=== PATIENT | female | born 1995 | race African-American/Black ===

== ENCOUNTER 2025-04-13 16:13 | Emergency (ER) | payer MEDICAID, OTHER ==
[~2025-04-13] VITALS: Ht 152.4 cm; Wt 41.3 kg
--- NOTE | 2025-04-13 17:09 | ED.PDOC ---
GI ASSESSMENT HPI Comments 30y F who presents to the ED for chief complaint of abdominal pain. PT states she has been having RLQ abdominal pain for the past 2 weeks. Pt states she is also , and states she went to PCP at [facility], [place] and states she was referred to the ED for further evaluation. Pt in the ED, presents with referral to rule out ectopic and states pt had labs done which showed pt was positive for UTI. Pt otherwise has been having nausea but otherwise denies any other symptoms. Pt has noted stable vitals in the ED. 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 Family History Family History: Reviewed,noncontributory to illness Social History Smoker: Non-Smoker Alcohol: Denies ETOH Use Drugs: Denies Drug Use Lives In: Home Constitutional: denies: chills, diaphoresis, fatigue, fever, malaise, sweats, weakness, others EENTM: denies: blurred vision, double vision, ear bleeding, ear discharge, ear drainage, ear pain, ear ringing, eye pain, eye redness, hearing loss, mouth pain, mouth swelling, nasal discharge, nose bleeding, nose congestion, nose pain, photophobia, tearing, throat pain, throat swelling, voice changes, others Respiratory: denies: cough, hemoptysis, orthopnea, SOB at rest, shortness of breath, SOB with excertion, stridor, wheezing, others Cardiovascular: denies: chest pain, dizzy spells, diaphoresis, Dyspnea on exertion, edema, irregular heart beat, left arm pain, lightheadedness, palpitations, PND, syncope, others Gastrointestinal: reports: abdominal pain, nausea; denies: abdomen distended, blood streaked bowels, constipated, diarrhea, dysphagia, difficulty swallowing, hematemesis, melena, poor appetite, poor fluid intake, rectal bleeding, rectal pain, vomiting, others Genitourinary: denies: abnormal vagina bleeding, burning, dyspareunia, dysuria, flank pain, frequency, hematuria, incontinence, pain, , vagina discharge, urgency, others Neurological: denies: dizziness, fainting, headache, left sided numbness, left sided weakness, numbness, paresthesia, pre-existing deficit, right sided numbness, right sided weakness, seizure, speech problems, tingling, tremors, weakness, others Musculoskeletal: denies: back pain, gout, joint pain, joint swelling, muscle pain, muscle stiffness, neck pain, others Integumetry: denies: bruises, change in color, change in hair/nails, dryness, laceration, lesions, lumps, rash, wounds, others Allergic/Immunocompromised: denies: Difficulty Healing, Frequent Infections, Hives, Itching, others Hematologic/Lymphatic: denies: anemia, blood clots, easy bleeding, easy bruising, swollen glands, others Endocrine: denies: excessive hunger, excessive sweating, excessive thirst, excessive urination, flushing, intolerance to cold, intolerance to heat, unexplained weight gain, unexplained weight loss, others Psychiatric: denies: anxiety, bipolar disorder, depression, hopeless, panic disorder, schizophrenia, sleepless, suicidal, others All Other Systems: Reviewed and Negative Physical Exam General Appearance: Mild Distress, Thin HEENT: Normal ENT Inspection, PERRL/EOMI Neck: Full Range of Motion, Non-Tender, Normal, Normal Inspection Respiratory: Chest Non-Tender, Lungs Clear, No Accessory Muscle Use, No Respiratory Distress, Normal Breath Sounds Cardiovascular: No Edema, No JVD, No Murmur, No Gallop, Normal Peripheral Pulses, Regular Rate/Rhythm Breast Exam: Deferred Gastrointestinal: No Organomegaly, No Pulsatile Mass, Normal Bowel Sounds, RLQ, Soft, Suprapubic, Tenderness Genitalia: Deferred Pelvic: Deferred Rectal: Deferred Extremities: No calf tenderness, Normal capillary refill, Normal inspection, Normal range of motion, Non-tender, No pedal edema Neurologic: Alert, specialty cook II-XII nml as Tested, No Motor Deficits, Normal Affect, Normal Mood, No Sensory Deficits Cerebellar Function: Normal Reflexes: Normal Skin: Dry, Normal Color, Warm Peripheral Pulses: 1+ carotid (R), 1+ carotid (L) Lymphatic: No Adenopathy Was a procedure done? Was a procedure done?: No GI differential Dx Differential Diagnosis: Cholecystitis, Ectopic , Gastritis/PUD, Gastroenteritis, UTI, Dehydration, , Anemia, Stress Ulcer, Kidney Stone X-Ray, Labs, Meds, VS Vital Signs Date Time Temp Pulse Resp B/P (MAP) Pulse Ox O2 Delivery O2 Flow Rate FiO2 04/13/25 18:05 98.7 72 16 136/87 (103) 100 98.7 04/13/25 16:14 98.3 89 20 107/73 100 98.3 Lab Test 04/13/25 17:24 04/13/25 16:30 Range/Units White Blood Count 6.3 4.4-10.8 10^3/uL Red Blood Count 3.87 L 4.0-5.20 10^6/uL Hemoglobin 9.9 L 12.2-16.2 g/dL Hematocrit 30.3 L 36.0-46.0 % Mean Corpuscular Volume 78.3 L 80.0-100.0 fL Mean Corpuscular Hemoglobin 25.6 L 28.0-32.0 pg Mean Corpuscular Hemoglobin Concent 32.7 32.0-36.0 g/dL Red Cell Distribution Width 18.2 H 11.8-14.3 % Platelet Count 226 140-450 10^3/uL Mean Platelet Volume 8.6 6.9-10.8 fL Neutrophils (%) (Auto) 54.5 37.0-80.0 % Lymphocytes (%) (Auto) 37.5 10.0-50.0 % Monocytes (%) (Auto) 6.3 0.0-12.0 % Eosinophils (%) (Auto) 1.3 0.0-7.0 % Basophils (%) (Auto) 0.4 0.0-2.0 % Neutrophils # (Auto) 3.5 1.6-8.6 10 ^3/uL Lymphocytes # (Auto) 2.4 0.4-5.4 10 ^3/uL Monocytes # (Auto) 0.4 0-1.3 10 ^3/uL Eosinophils # (Auto) 0.1 0-0.8 10 ^3/uL Basophils # (Auto) 0 0-0.2 10 ^3/uL Nucleated Red Blood Cells 0.2 % Sodium Level 137 136-145 mmol/L Potassium Level 3.5 3.5-5.1 mmol/L Chloride Level 105 98-107 mmol/L Carbon Dioxide Level 24 20-31 mmol/L Anion Gap 8 5-15 Blood Urea Nitrogen 5 L 9-23 mg/dL Creatinine 0.69 0.550-1.02 mg/dL Glomerular Filtration Rate Calc 119 >90 mL/min BUN/Creatinine Ratio 7.2 L 10.0-20.0 Serum Glucose 81 74-106 mg/dL Calcium Level 8.8 8.7-10.4 mg/dL Beta HCG, Quantitative > 592069.0 H 1.5-4.2 mIU/mL Urine Color Light-orange Yellow Urine Clarity Ex.turbid Clear Urine pH 5.5 5.0-9.0 Urine Specific [place] 1.029 1.001-1.035 Urine Protein 1+ H Negative Urine Ketones Trace Negative Urine Blood Negative Negative /uL Urine Nitrite 2+ H Negative Urine Bilirubin Negative Negative Urine Urobilinogen Normal Negative mg/dL Urine Leukocyte Esterase 3+ Negative /uL Urine RBC 2 0 - 4 /hpf Urine Microscopic WBC 762 H 0-5 /HPF Urine Squamous Epithelial Cells Few <5 /hpf Urine Bacteria Mod H None Seen /hpf Urine Mucus Few None Seen Urine Glucose Normal Normal mg/dL [place] [id number] Ph: [phone] DIAGNOSTIC IMAGING Diagnostic Imaging Report : [id number] Signed PATIENT: NENA HE ACCT: [id number] UNIT: [id number] : 1995 LOC: ER ROOM / BED: / AGE / SEX: 30 / F ADM STATUS: REG ER SERVICE 1701 ORDERING PHYSICIAN: RODOLFO CUMMINGS MD PROCEDURE(s): OB4US - OB ULTRASOUND COMP LESS 14WKS REASON: Right-sided abdominal pain ORDER NUMBER(s): [id number], ACCESSION NUMBER(s): [id number] OBSTETRIC ULTRASOUND PRIOR TO 14 WEEKS CLINICAL INDICATION: Right-sided abdominal pain TECHNIQUE: Multiple grayscale ultrasound images were obtained of the pelvis via transabdominal approach for obstetric evaluation. Limited color Doppler and spectral Doppler acquisitions were also obtained. COMPARISON: None FINDINGS: Uterus: 9.8 x 7.2 x 5.8 cm. There is a single intrauterine gestational sac is visualized. A pole is visualized measuring 1.15 cm compatible with an estimated gestational age of 7 weeks, 2 days. cardiac activity is present with heart rate of 146 beats per minute. A normal yolk sac is present. Right adnexa: right ovary not visualized . Normal arterial blood flow in the ovary. No right adnexal mass seen. Left adnexa: left ovary 3.7 x 3.7 x 3.0 cm. Normal arterial blood flow in the ovary. No left adnexal mass seen. Simple cyst in the left ovary measures 1.9 cm. Other: Small subchorionic hemorrhage measures 2.4 cm. IMPRESSION: Single living intrauterine with an estimated gestational age of 8 weeks, 0 days, corresponding to an estimated date of delivery of 11/23/2025. Small subchorionic hemorrhage. 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 She will be treated for UTI Time of 1ST Reevaluation: 18:00 Reevaluation 1ST: Unchanged Time of 2ND Reevaluation: 19:57 Reevaluation 2ND: Improved Consultation: PCP, headwaitress Patient Education/Counseling: Diagnosis, Treatment, Prognosis, Need For Follow Up Family Education/Counseling: Diagnosis, Treatment, Prognosis, Need For Follow Up, No Family Present SEPSIS Sepsis Screen Date sepsis recognized/suspect: Apr 13, 2025 Time Sepsis recognized/suspect: 1617 Recent Procedure: No On Antibiotic Therapy: No Respiratory Rate >20: No Heart Rate >90: No Temp<36 C (96.8 F) or >38.3 C: No SBP <90 or MAP <65 mmHG: No New Acute Mental Status Change: No Is the patient on CPAP, BIPAP,: No Physician Orders Heplock Iv (04/13/25 17:01) Ob Ultrasound Comp Less 14wks (04/13/25 17:01) Vital Signs Date Time Temp Pulse Resp B/P (MAP) Pulse Ox O2 Delivery O2 Flow Rate FiO2 04/13/25 18:05 98.7 72 16 136/87 (103) 100 98.7 04/13/25 16:14 98.3 89 20 107/73 100 98.3 Laboratory Tests Test 04/13/25 17:24 White Blood Count 6.3 10^3/uL (4.4-10.8) Departure 1 Departure Time of Disposition: 19:58 Impression: Primary Impression: Qualified Codes: Z3A.08 - 8 weeks gestation of Additional Impression: UTI (urinary tract infection) Qualified Codes: N30.00 - Acute cystitis without hematuria Disposition: HOME / SELF CARE / HOMELESS Condition: Fair e-Prescriptions Cefdinir (Cefdinir) 300 Mg Cap 1 CAP PO BID for 7 Days, #14 CAP Prov: RODOLFO CUMMINGS MD 04/13/25 Discharged With: Relative Critical Care Note Critical Care Time?: No Stability Stability form required: No Heart Score Heart Score: Heart Score Response (Comments) Value History N/A 0 EKG N/A 0 Age <45 0 Risk Factors No known risk factors 0 Troponin N/A 0 Total 0 I personally scribed for RODOLFO CUMMINGS MD (J [email or web address]) on 04/13/25 at 17:09. Electronically submitted by Kailee Malloy ([facility] [email or web address] I personally scribed for RODOLFO CUMMINGS MD (J [email or web address]) on 04/13/25 at 18:45. Electronically submitted by Kailee Malloy ([email or web address]). I personally scribed for RODOLFO CUMMINGS MD (J [email or web address]) on 04/13/25 at 19:33. Electronically submitted by Kailee Malloy ([email or web address]). RODOLFO CUMMINGS MD Apr 13, 2025 17:09
[2025-04-13 17:32] LABS: Urine Protein, UAD 1+ (Negative)
[2025-04-13 18:16] LABS: Anion Gap 8 (5-15); Carbon Dioxide 24 mmol/L (20-31); Chloride 105 mmol/L (98-107); Sodium 137 mmol/L (136-145)
[2025-04-13 18:17] LABS: Calcium 8.8 mg/dL (8.7-10.4)
[2025-04-13 18:22] LABS: BUN/Creatinine Ratio 7.2 (10.0-20.0); Glucose 81 mg/dL (74-106)
--- NOTE | 2025-04-13 18:22 | DVH ---
OBSTETRIC ULTRASOUND PRIOR TO 14 WEEKS CLINICAL INDICATION: Right-sided abdominal pain TECHNIQUE: Multiple grayscale ultrasound images were obtained of the pelvis via transabdominal approa for obstetric evaluation. Limited color Doppler and spectral Doppler acquisitions were also obtain ed. COMPARISON: None FINDINGS: Uterus: 9.8 x 7.2 x 5.8 cm. There is a single intrauterine gestational sac is visualized. A iliana e is visualized measuring 1.15 cm compatible with an estimated gestational age of 7 weeks, 2 days. F etal cardiac activity is present with heart rate of 146 beats per minute. A normal yolk sac is prese nt. Right adnexa: right ovary not visualized . Normal arterial blood flow in the ovary. No right adnexal mass seen. Left adnexa: left ovary 3.7 x 3.7 x 3.0 cm. Normal arterial blood flow in the ovary. No left adnexal mass seen. Simple cyst in the left ovary measures 1.9 cm. Other: Small subchorionic hemorrhage measures 2.4 cm. IMPRESSION: Single living intrauterine with an estimated gestational age of 8 weeks, 0 days, correspo nding to an estimated date of delivery of 11/23/2025. Small subchorionic hemorrhage.
[2025-04-13 18:32] LABS: Hematocrit 30.3 % (36.0-46.0); Hemoglobin 9.9 g/dL (12.2-16.2); Mean Corpuscular Hemoglobin 25.6 pg (28.0-32.0); Mean Corpuscular Volume 78.3 fL (80.0-100.0); Nucleated Red Blood Cells % 0.2 %
[2025-04-13 18:36] LABS: Blood Urea Nitrogen 5 mg/dL (9-23); Potassium 3.5 mmol/L (3.5-5.1)
[2025-04-13] MEDS ORDERED: CEFD300C2 PO (20:00)
[2025-04-13 20:20] VITALS: BP 103/71; PULSE 81; RESP 16; TEMP 98.2; O2SAT 100
== END 2025-04-13 20:26 | disposition home or self-care (01) ==
LOC: MERGE 16:13 → ER 16:13
DX: O26.891 Other specified pregnancy related conditions, first trimester (principal); O23.41 Unspecified infection of urinary tract in pregnancy, first trimester; N39.0 Urinary tract infection, site not specified; I10 Essential (primary) hypertension; Z3A.08 8 weeks gestation of pregnancy
CPT/HCPCS: 36415; 76801; 80048; 81001; 84702; 85025